=== PATIENT | female | born 1985 | race Two or more races ===

== ENCOUNTER 2016-12-18 10:53 | Emergency (ER) | payer OTHER, BC ==
[2016-12-18 11:20] LABS: EOSINOPHIL (%) 3.3 % (0-5); EOSINOPHIL COUNT 0.3 K/uL (0-0.3); HEMATOCRIT 42.6 % (36.0-46.0); IMMATURE GRANULOCYTE (%) 0.3 % (0.0-0.7); IMMATURE GRANULOCYTE COUNT 0.2 K/uL; LYMPHOCYTE COUNT 2.1 K/uL (1.0-2.8); MCH 30.8 PG (29.0-34.0); MEAN PLAT.VOLUME 9.1 uM^3 (9.5-12.4); MONOCYTE (%) 7.7 % (3-12); MONOCYTE COUNT 0.6 K/uL (0-0.8); NEUTROPHIL (%) 60.8 % (45-76); NEUTROPHIL COUNT 4.7 K/uL (1.8-6.4); PLATELET COUNT 260 K/uL (156-360); RBC DIS.WIDTH-CV 12.6 % (11.8-14.6); RED BLOOD COUNT 4.84 M/uL (3.80-5.20); WHITE BLOOD COUNT 7.7 K/uL (4.1-10.2)
[2016-12-18 11:29] LABS: AMYLASE 59 IU/L (1-118); CHLORIDE 105 mEq/L (99-109); POTASSIUM 3.6 mEq/L (3.7-5.4); SODIUM 138 mEq/L (136-147)
[2016-12-18 11:31] LABS: GLUCOSE 100 mg/dL (70-99)
[2016-12-18 11:32] LABS: ANION GAP 11 MEQ/L (2-14)
[2016-12-18 11:34] LABS: SERUM ETHYL ALCOHOL < 10 mg/dL
[2016-12-18 11:35] LABS: GFR ESTIMATE (CALCULATED) > 59 mL/min/; UREA NITROGEN (BUN) 17 mg/dL (9-23)
[2016-12-18 11:37] LABS: LIPASE 22 U/L (1.0-51.0)
[2016-12-18 11:43] LABS: QUANTITATIVE HCG < 4.0 MIU/ML
[2016-12-18] MEDS ORDERED: FLEXERIL10 MG PO (13:01)
== END 2016-12-18 13:27 | disposition home or self-care (01) ==
LOC: TRA 10:53
PROVIDERS: Emergency Medicine
DX: S16.1XXA Strain of muscle, fascia and tendon at neck level, initial encounter (principal); M54.5 Low back pain; M25.551 Pain in right hip; M25.552 Pain in left hip; R10.9 Unspecified abdominal pain; V49.40XA Driver injured in collision with unspecified motor vehicles in traffic accident, initial encounter
CPT/HCPCS: 70450; 71260; 72125; 72129; 72132; 74177; 80048; 81003; 82150; 83690; 84702; 85025; 86850; 86900; 86901; 99281; 99285; G0480; J2405; J3010